=== PATIENT | female | born 2000 | race Caucasian/White ===

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

== ENCOUNTER 2018-02-20 18:34 | Emergency (ER) | payer OTHER ==
[2018-02-20 19:05] VITALS: BP 125/73; PULSE 84; RESP 18; TEMP 98.6
[2018-02-20] MEDS ORDERED: HYDROcodone/APAP 5-325MG 1 EACH TAB PO STA (19:36)
--- NOTE | 2018-02-20 20:02 | XR ---
EXAMINATION TYPE: XR ankle complete LT DATE OF EXAM: 02/20/2018 COMPARISON: NONE HISTORY: Ankle pain TECHNIQUE: 3 views FINDINGS: I see no fracture nor dislocation. Ankle mortise is anatomic. Joint spaces are normal. IMPRESSION: Negative left ankle exam.
--- NOTE | 2018-02-20 20:03 | XR ---
EXAMINATION TYPE: XR tibia fibula LT DATE OF EXAM: 02/20/2018 COMPARISON: NONE HISTORY: Ankle pain TECHNIQUE: 2 views FINDINGS: I see no fracture nor dislocation. Knee joint and ankle joint appear intact. Soft tissues a ppear normal. IMPRESSION: Normal left tibia and fibula.
--- NOTE | 2018-02-20 20:46 | ED ---
General Adult HPI - General Chief complaint: Extremity Injury, Lower Stated complaint: left leg injury Time Seen by Provider: 02/20/18 19:15 Source: patient Mode of arrival: ambulatory Limitations: no limitations - History of Present Illness Initial comments: This a 17-year-old female with past medical history of asthma who presents today for chief complaint of I rolled my ankle. Patient states that around 6: 30 PM she was riding a long board for the first time, when she fell off and twisted her left ankle inward, she states that she felt a pop and immediately noticed swelling and pain in the ankle joint. Patient was able to ambulate, and weight-bear after the injury however it is very painful. Patient describes the pain is localized to the left ankle that increases with weightbearing and range of motion. She had her friend pick her up and she is mainly brought to the emergency department. Patient denies any numbness, tingling, paresthesia, loss of sensation, color changes, previous ankle injury, muscle weakness, or pallor of the left lower extremity, patient denies any obvious dislocation. Patient did not ice or take medication prior to arrival at the emergency department. Patient denies injury to any other body part/extremity including the head, patient did not hit head, lose consciousness, or experiencing any chest pain, palpitations, dizziness or shortness of breath prior to falling. She states that this was a mechanical. Patient denies any recent fever, chills, shortness of breath, chest pain, back pain, abdominal pain, nausea or vomiting, numbness or tingling, dysuria or hematuria, constipation or diarrhea, headaches or visual changes, or any other complaints. Patient last menstrual period was a day ago, patient denies chance of . - Related Data Home Medications Medication Instructions Recorded Confirmed Albuterol Inhaler [Ventolin Hfa 1 puff INHALATION RT-Q6H PRN 09/29/15 08/16/16 Inhaler] Previous Rx's Medication Instructions Recorded Famotidine [Pepcid] 20 mg PO BID #14 tablet 11/14/16 diphenhydrAMINE [Benadryl] 50 mg PO QID PRN #20 capsule 11/14/16 Triamcinolone 0.1% Cream [Kenalog] 1 applicatio TOPICAL BID #30 gram 05/05/17 Sulfamethox-Tmp 800-160Mg [Bactrim 1 tab PO Q12HR #28 tab 09/23/17 DS 800-160 mg] Fluticasone Nasal [place] [Flonase 2 spr EA NOSTRIL DAILY #1 bottle 12/30/17 Nasal [place]] Loratadine [Claritin] 10 mg PO DAILY #30 tab 12/30/17 Meclizine [Antivert] 25 mg PO TID PRN #15 tab 12/30/17 Ibuprofen [Motrin] 600 mg PO Q6HR PRN 7 Days #28 tab 02/20/18 Allergies Allergy/AdvReac Type Severity Reaction Status Date / Time cashew nut Allergy Unknown Verified 02/20/18 19:05 egg Allergy Unknown Verified 02/20/18 19:05 Influenza Virus Vaccines Allergy Unknown Verified 02/20/18 19:05 mold Allergy Unknown Verified 02/20/18 19:05 pollen extracts Allergy Unknown Verified 02/20/18 19:05 walnut Allergy Unknown Verified 02/20/18 19:05 Review of Systems ROS Statement: Those systems with pertinent positive or pertinent negative responses have been documented in the HPI. ROS Other: All systems not noted in ROS Statement are negative. Constitutional: Denies: fever, chills ENT: Denies: ear pain Respiratory: Denies: cough, dyspnea Cardiovascular: Denies: chest pain, palpitations, dyspnea on exertion, orthopnea , edema Endocrine: Denies: fatigue Gastrointestinal: Denies: abdominal pain, nausea, vomiting, diarrhea, constipation, hematemesis Genitourinary: Denies: urgency, dysuria, frequency, hematuria Musculoskeletal: Reports: as per HPI, joint swelling, arthralgia Skin: Denies: rash, lesions Neurological: Denies: headache, weakness, numbness, paresthesias, confusion, abnormal gait Past Medical History Past Medical History: Asthma Additional Past Medical History / Comment(s): per mom numerous concussions, History of Any Multi-Drug Resistant Organisms: None Reported Past Surgical History: No Surgical Hx Reported Additional Past Surgical History / Comment(s): wisdom teeth removed, Past Psychological History: Anxiety, Depression, Panic Disorder Smoking Status: Never smoker Past Alcohol Use History: None Reported Past Drug Use History: None Reported General Exam - General Exam Comments Initial Comments: General: The patient is awake and alert, in no distress, and does not appear acutely ill. Eye: Pupils are equal, round and reactive to light, extra-ocular movements are intact. No nystagmus. There is normal conjunctiva bilaterally. No signs of icterus. Ears, nose, mouth and throat: There are moist mucous membranes and no oral lesions. Neck: The neck is supple, there is no tenderness or JVD. Cardiovascular: There is a regular rate and rhythm. No murmur, rub or gallop is appreciated. Respiratory: Lungs are clear to auscultation, respirations are non-labored, breath sounds are equal. No wheezes, stridor, rales, or rhonchi. Musculoskeletal: There is obvious soft tissue swelling to the lateral aspect of the left ankle joint. There is no evidence of ecchymosis. No foot drop. Pt is tender to palpation over the lateral malleolus and anterior ankle joint. Pt denies tenderness over the medial mallelous. Pt have no pain to the forefoot or navicular bone. No pain in akle with compression of tibia and fibula. Pt is able to range the left ankle joint however it is limited secondary to pain. Increased pain with inversion of the ankle joint. Strength testing was limited due to pt compliance, however felt as though strength was 5/5 with plantar flexion/dorsiflexion- no evidence of increased laxity or crepitus. Normal ROM, no tenderness of the left knee, left hip and right LE. Strength 5/5 of the left knee, hip and right LE. Sensation intact of the LE equally b/l. No parathesias to the second wed space of the left foot. Pulses equal bilaterally 2 +M DP and posterior tibial. Compartments are soft and compressible. Gallagher's sign present. +2/5 DTR of the patella and achillles reflexes equally b/l. Neurological: A&O x 3. CN II-XII intact, There are no obvious motor or sensory deficits. Coordination appears grossly intact. Speech is normal. Skin: Skin is warm and dry and no rashes or lesions are noted. Psychiatric: Cooperative, appropriate mood & affect, normal judgment. Limitations: no limitations Course Vital Signs 02/20/18 19:01 Temperature 98.6 F Pulse Rate 84 Respiratory 18 Rate Blood Pressure 125/73 O2 Sat by Pulse 99 Oximetry Medical Decision Making - Medical Decision Making Pt was given norco for pain management upon arrival-pt denied chance of denying sexually activity. XR of the left ankle, tibia and fibula negative. Given the history and significance of soft tissue swelling I am suspicious for possible ligamentous injury/bria sprain. Neurovascular exam unremarkable and compartments soft and compressible. Pt was put in a posterior mold splint and given RX for crutches. Pt was instructed to limit WB activity until further evaluation and recommendations from desktop support specialist. pt was given ibuprofen 800mg rx for pain mgmt as needed and instructed to rest, ice and elevate the leg. Pt was given work note until further orthopedic f/u. Case was discussed in detail with Dr. Martinez at this time we feel pt is stable for d/c with orthopedic f/u in 1-2 days. Disposition Clinical Impression: Moderate left ankle sprain, Left ankle pain Disposition: HOME SELF-CARE Condition: Good Instructions: Ankle Sprain (ED) Additional Instructions: Please use medication as discussed. Please follow-up with orthopedics in 1-2 days. Please rest, ice and elevate left leg as discussed. Please return to emergency room if the symptoms increase or worsen or for any other concerns. Prescriptions: Ibuprofen [Motrin] 600 mg PO Q6HR PRN 7 Days #28 tab PRN Reason: Pain Is patient prescribed a controlled substance at d/c from ED?: No Referrals: Laura Snow MD [Primary Care Provider] - 1-2 days Dung Lara DO [Doctor of Osteopathic Medicine] - 1-2 days Time of Disposition: 20:49
== END 2018-02-20 21:02 | disposition home or self-care (01) ==
LOC: EC 18:34
DX: S93.402A Sprain of unspecified ligament of left ankle, initial encounter (principal); J45.909 Unspecified asthma, uncomplicated; Z91.018 Allergy to other foods; Z91.012 Allergy to eggs; Z88.7 Allergy status to serum and vaccine; Z91.048 Other nonmedicinal substance allergy status; X50.1XXA Overexertion from prolonged static or awkward postures, initial encounter; Y93.I9 Activity, other involving external motion
CPT/HCPCS: 29515; 99283

== ENCOUNTER 2018-09-26 17:46 | Emergency (ER) | payer OTHER ==
[2018-09-26 18:27] VITALS: RESP 16; TEMP 98.1
[2018-09-26] MEDS ORDERED: DEXAMETHASONE SOD PHOSPHATE 10 MG/ML 1 ML VIAL IM STA (20:12)
[2018-09-26] MEDS ORDERED: ONDANSETRON ODT 4 MG TAB PO STA (20:12)
[2018-09-26] MEDS ORDERED: ONDANSETRON 4 MG ODT STARTER PACK 2 TAB BTL PO STA (20:12)
[2018-09-26] MEDS ORDERED: FAMOTIDINE 20 MG TAB PO STA (20:12)
[2018-09-26] MEDS ORDERED: hydrOXYzine HCL 25 MG TAB PO STA (20:14)
--- NOTE | 2018-09-26 20:23 | ED ---
Nausea/Vomiting/Diarrhea HPI - General Chief complaint: Nausea/Vomiting/Diarrhea Stated complaint: Poss Allergic reaction Time Seen by Provider: 09/26/18 19:37 Source: patient, RN notes reviewed, old records reviewed Mode of arrival: ambulatory Limitations: no limitations - History of Present Illness Initial comments: This is a 18-year-old female the ER for evaluation. Patient does say for evaluation regarding facial rash and reaction. Patient doesn't to drinking alcohol last night did have nausea and vomiting when she awoke this morning. Patient also diarrhea throughout the day and is has been feeling completely resolved. The rash has persisted as well as some lip swelling and mucous membrane swelling. The swelling is improved. No current nausea and vomiting. Patient denies any other complaints MD complaint: nausea, vomiting, other (Facial rash) -: days(s) (1) Description of Vomiting: food contents Description of Diarrhea: green Associated Abdominal Pain: Yes Location: epigastric Radiation: none Severity: mild Quality: aching Consistency: constant, now resolved Improves with: none Worsens with: none Context: alcohol abuse Associated Symptoms: denies other symptoms - Related Data Home Medications Medication Instructions Recorded Confirmed Albuterol Inhaler [Ventolin Hfa 1 puff INHALATION RT-Q6H PRN 09/29/15 09/26/18 Inhaler] Acyclovir 400 mg PO BID 09/26/18 09/26/18 Allergies Allergy/AdvReac Type Severity Reaction Status Date / Time cashew nut Allergy Unknown Verified 09/26/18 20:27 egg Allergy Unknown Verified 09/26/18 20:27 Influenza Virus Vaccines Allergy Unknown Verified 09/26/18 20:27 mold Allergy Unknown Verified 09/26/18 20:27 pollen extracts Allergy Unknown Verified 09/26/18 20:27 tree nut [Pecan] Allergy Unknown Verified 09/26/18 20:27 walnut Allergy Unknown Verified 09/26/18 20:27 Review of Systems ROS Statement: Those systems with pertinent positive or pertinent negative responses have been documented in the HPI. ROS Other: All systems not noted in ROS Statement are negative. Past Medical History Past Medical History: Asthma Additional Past Medical History / Comment(s): per mom numerous concussions, History of Any Multi-Drug Resistant Organisms: None Reported Past Surgical History: No Surgical Hx Reported Additional Past Surgical History / Comment(s): wisdom teeth removed, Past Psychological History: Anxiety, Depression, Panic Disorder Smoking Status: Never smoker Past Alcohol Use History: None Reported Past Drug Use History: None Reported General Exam - General Exam Comments Initial Comments: Patient does have mild facial rash Limitations: no limitations General appearance: alert, in no apparent distress Head exam: Present: atraumatic, normocephalic, normal inspection Eye exam: Present: normal appearance, PERRL, EOMI. Absent: scleral icterus, conjunctival injection, periorbital swelling ENT exam: Present: normal exam, mucous membranes moist Neck exam: Present: normal inspection. Absent: tenderness, meningismus, lymphadenopathy Respiratory exam: Present: normal lung sounds bilaterally. Absent: respiratory distress, wheezes, rales, rhonchi, stridor Cardiovascular Exam: Present: regular rate, normal rhythm, normal heart sounds. Absent: systolic murmur, diastolic murmur, rubs, gallop, clicks GI/Abdominal exam: Present: soft, normal bowel sounds. Absent: distended, tenderness, guarding, rebound, rigid Extremities exam: Present: normal inspection, full ROM, normal capillary refill. Absent: tenderness, pedal edema, joint swelling, calf tenderness Back exam: Present: normal inspection Neurological exam: Present: alert, oriented X3, CN II-XII intact Psychiatric exam: Present: normal affect, normal mood Skin exam: Present: warm, dry, intact, normal color. Absent: rash Course Vital Signs 09/26/18 18:26 Temperature 98.1 F Pulse Rate 99 Respiratory 16 Rate Blood Pressure 149/80 O2 Sat by Pulse 99 Oximetry - Reevaluation(s) Reevaluation #1: 09/26/18 20:30 No active vomiting, Medical Decision Making - Medical Decision Making 18 female the ER with multiple nonspecific complaints, facial rash tongue and mucous membrane reaction, nausea vomiting and diarrhea. patient be discharged on zofran symptoms improved here in emergency room Disposition Clinical Impression: Nausea & vomiting, Allergic reaction Disposition: HOME SELF-CARE Condition: Good Instructions (If sedation given, give patient instructions): Acute Nausea and Vomiting (ED), Dermatitis (ED) Is patient prescribed a controlled substance at d/c from ED?: No Referrals: Laura Snow MD [Primary Care Provider] - 1-2 days
[2018-09-26 21:16] VITALS: BP 110/78; PULSE 93
== END 2018-09-26 21:30 | disposition home or self-care (01) ==
LOC: EC 17:46
DX: T78.40XA Allergy, unspecified, initial encounter (principal); R11.2 Nausea with vomiting, unspecified; R10.13 Epigastric pain; J45.909 Unspecified asthma, uncomplicated; Z88.7 Allergy status to serum and vaccine; Z91.012 Allergy to eggs; Z91.018 Allergy to other foods; Z91.09 Other allergy status, other than to drugs and biological substances; Z79.899 Other long term (current) drug therapy
CPT/HCPCS: 99285; S0119

== ENCOUNTER 2019-06-06 18:22 | Emergency (ER) | payer OTHER ==
[2019-06-06 18:26] VITALS: BP 109/64; PULSE 82; RESP 18; TEMP 97.4
[2019-06-06] MEDS ORDERED: ONDANSETRON 4 MG ODT STARTER PACK 2 TAB BTL PO STA (18:29)
--- NOTE | 2019-06-06 19:39 | ED ---
Nausea/Vomiting/Diarrhea HPI - General Chief complaint: Nausea/Vomiting/Diarrhea Stated complaint: Vomiting, Abd Pain Time Seen by Provider: 06/06/19 18:30 Source: patient Mode of arrival: ambulatory Limitations: no limitations - History of Present Illness Initial comments: 18-year-old male with no significant past medical history presented to the emergency department for evaluation of vomiting times one day. Patient states she has had vomiting diarrhea that began shortly after eating [employer]. Patient states she feels that she ate something bad she states she did have nausea abdominal cramping prior to vomiting. She denies any severe abdominal pain. Denies . Patient denies a chest pain shortness of breath melena hematochezia or fevers. Patient denies any positive sick contacts. Upon arrival patient appears well in the sense acute distress remaining abuse is negative. - Related Data Home Medications Medication Instructions Recorded Confirmed Albuterol Inhaler [Ventolin Hfa 2 puff INHALATION RT-Q6H PRN 09/29/15 06/06/19 Inhaler] Acyclovir 400 mg PO BID 09/26/18 06/06/19 Phentermine HCl [Adipex-P] 37.5 mg PO DAILY 06/06/19 06/06/19 Allergies Allergy/AdvReac Type Severity Reaction Status Date / Time cashew nut Allergy Unknown Verified 06/06/19 19:08 egg Allergy Unknown Verified 06/06/19 19:08 Influenza Virus Vaccines Allergy Unknown Verified 06/06/19 19:08 mold Allergy Unknown Verified 06/06/19 19:08 pollen extracts Allergy Unknown Verified 06/06/19 19:08 tree nut [Pecan] Allergy Unknown Verified 06/06/19 19:08 walnut Allergy Unknown Verified 06/06/19 19:08 Review of Systems ROS Statement: Those systems with pertinent positive or pertinent negative responses have been documented in the HPI. ROS Other: All systems not noted in ROS Statement are negative. Past Medical History Past Medical History: Asthma Additional Past Medical History / Comment(s): per mom numerous concussions, History of Any Multi-Drug Resistant Organisms: None Reported Past Surgical History: No Surgical Hx Reported Additional Past Surgical History / Comment(s): wisdom teeth removed, Past Psychological History: Anxiety, Depression, Panic Disorder Smoking Status: Never smoker Past Alcohol Use History: None Reported Past Drug Use History: None Reported General Exam - General Exam Comments Initial Comments: General: The patient is awake and alert, in no distress, and does not appear acutely ill. Eye: Pupils are equal, round and reactive to light, extra-ocular movements are intact. No nystagmus. There is normal conjunctiva bilaterally. No signs of icterus. Ears, nose, mouth and throat: There are moist mucous membranes and no oral lesions. Neck: The neck is supple, there is no tenderness or JVD. Cardiovascular: There is a regular rate and rhythm. No murmur, rub or gallop is appreciated. Respiratory: Lungs are clear to auscultation, respirations are non-labored, breath sounds are equal. No wheezes, stridor, rales, or rhonchi. Gastrointestinal: Soft, non-distended, non-tender abdomen without masses or organomegaly noted. There is no rebound or guarding present. Musculoskeletal: Normal ROM, no tenderness. Strength 5/5. Sensation intact. Pulses equal bilaterally 2+. Neurological: A&O x 3. CN II-XII intact grossly, There are no obvious motor or sensory deficits. Coordination appears grossly intact. Speech is normal. Skin: Skin is warm and dry and no rashes or lesions are noted. Psychiatric: Cooperative, appropriate mood & affect, normal judgment. Limitations: no limitations Course Vital Signs 06/06/19 18:24 Temperature 97.4 F L Pulse Rate 82 Respiratory 18 Rate Blood Pressure 109/64 O2 Sat by Pulse 99 Oximetry Medical Decision Making - Medical Decision Making 18-year-old female presenting for vomiting and diarrhea 8 hours. Abdominal exam benign. Patient appears hydrated examination. vomiting given zofran. symptoms controlled. hcg negative at this time i do feel patient is stable for discharge with return parameters as discussed. patient is agreeable discharged with stable vital signs. - Lab Data Lab Results 06/06/19 Range/Units 19:40 Urine HCG, Qual Not Detected (Not Detectd) Disposition Clinical Impression: Vomiting and diarrhea Disposition: HOME SELF-CARE Condition: Good Instructions (If sedation given, give patient instructions): Acute Nausea and Vomiting (ED), Acute Diarrhea (ED) Additional Instructions: Please use medication as discussed. Please follow-up with family doctor in the next 2 days. Please return to emergency room if the symptoms increase or worsen or for any other concerns. Is patient prescribed a controlled substance at d/c from ED?: No Referrals: None,Stated [Primary Care Provider] - 1-2 days Time of Disposition: 19:43
== END 2019-06-06 20:11 | disposition home or self-care (01) ==
LOC: EC 18:22
DX: R11.2 Nausea with vomiting, unspecified (principal); R19.7 Diarrhea, unspecified; J45.909 Unspecified asthma, uncomplicated; Z79.51 Long term (current) use of inhaled steroids; Z91.018 Allergy to other foods; Z88.7 Allergy status to serum and vaccine; Z91.012 Allergy to eggs; Z91.048 Other nonmedicinal substance allergy status
CPT/HCPCS: 81025; 99284; S0119

== ENCOUNTER 2020-05-02 14:54 | Emergency (ER) | payer OTHER ==
[2020-05-02 15:28] VITALS: BP 106/63; PULSE 82; RESP 16; TEMP 98
--- NOTE | 2020-05-02 15:53 | ED ---
Lower Extremity Injury HPI - General Chief Complaint: Extremity Injury, Lower Stated Complaint: knee injury Time Seen by Provider: 05/02/20 15:30 Source: patient, RN notes reviewed, old records reviewed Mode of arrival: ambulatory Limitations: no limitations - History of Present Illness Initial Comments: Patient is a 19-year-old female who presents the emergency department today for eval for concern for left knee pain. She reports that the pain has been chronic for months. Patient states that it seems to be worse with flexing her knee and struck her movements. She stated she had x-rays beginning of the year which showed no fractures. She states she followed up with PCP and had knee immobilizer but never had an MRI. Patient complains that she is has not followed up with orthopedic. - Related Data Home Medications Medication Instructions Recorded Confirmed Albuterol Inhaler (Mhu) [Ventolin 2 puff INHALATION RT-Q6H PRN 09/29/15 06/06/19 Hfa Inhaler (Mhu)] Acyclovir 400 mg PO BID 09/26/18 06/06/19 Phentermine HCl [Adipex-P] 37.5 mg PO DAILY 06/06/19 06/06/19 Previous Rx's Medication Instructions Recorded Naproxen 500 mg PO BID #30 tablet 05/02/20 Allergies Allergy/AdvReac Type Severity Reaction Status Date / Time cashew nut Allergy Unknown Verified 05/02/20 15:28 egg Allergy Unknown Verified 05/02/20 15:28 Influenza Virus Vaccines Allergy Unknown Verified 05/02/20 15:28 mold Allergy Unknown Verified 05/02/20 15:28 pollen extracts Allergy Unknown Verified 05/02/20 15:28 tree nut [Pecan] Allergy Unknown Verified 05/02/20 15:28 walnut Allergy Unknown Verified 05/02/20 15:28 Review of Systems ROS Statement: Those systems with pertinent positive or pertinent negative responses have been documented in the HPI. ROS Other: All systems not noted in ROS Statement are negative. Past Medical History Past Medical History: Asthma Additional Past Medical History / Comment(s): per mom numerous concussions, History of Any Multi-Drug Resistant Organisms: None Reported Past Surgical History: No Surgical Hx Reported Additional Past Surgical History / Comment(s): wisdom teeth removed, Past Psychological History: Anxiety, Depression, Panic Disorder Smoking Status: Never smoker Past Alcohol Use History: Occasional Past Drug Use History: Marijuana General Exam - General Exam Comments Initial Comments: 19-year-old female. Alert and oriented. No distress. Limitations: no limitations General appearance: alert, in no apparent distress Head exam: Present: atraumatic, normocephalic, normal inspection Eye exam: Present: normal appearance, PERRL, EOMI. Absent: scleral icterus, conjunctival injection, periorbital swelling ENT exam: Present: normal exam Neck exam: Present: normal inspection. Absent: tenderness, meningismus, lymphadenopathy Respiratory exam: Present: normal lung sounds bilaterally. Absent: respiratory distress, wheezes, rales, rhonchi, stridor Cardiovascular Exam: Present: regular rate, normal rhythm, normal heart sounds. Absent: systolic murmur, diastolic murmur, rubs, gallop, clicks GI/Abdominal exam: Present: soft, normal bowel sounds. Absent: distended, tenderness, guarding, rebound, rigid Extremities exam: Present: normal inspection, full ROM, normal capillary refill. Absent: tenderness, pedal edema, joint swelling, calf tenderness Left Upper Leg exam: Present: normal inspection, full ROM Knee exam: Present: normal inspection, tenderness Lower Leg exam: Present: normal inspection, full ROM Ankle exam: Present: normal inspection, full ROM Foot/Toe exam: Present: normal inspection, full ROM Neurovascular tendon exam: Present: no vascular compromise Gait: observed and normal Back exam: Present: normal inspection Neurological exam: Present: alert, oriented X3, CN II-XII intact Psychiatric exam: Present: normal affect, normal mood Skin exam: Present: warm, dry, intact, normal color. Absent: rash Course Vital Signs 05/02/20 15:24 Temperature 98.0 F Pulse Rate 82 Respiratory 16 Rate Blood Pressure 106/63 O2 Sat by Pulse 99 Oximetry Medical Decision Making - Medical Decision Making 19-year-old female presents with chronic left knee pain worse with some flexion and certain movements. Patient had x-rays which showed no fracture beginning of the year. I offered patient's x-rays today she states she prefers not to. Patient is neurovascularly intact. Patient's knee has full range of motion. No significant crepitus. She has had pain over valgus stress. Patient informed likely ligamentous or cartilaginous injury and meniscus. Patient advised follow-up with orthopedic podiatrist for possible MRI. She declined x-rays or IM pain medication emergency department. Discussed ice and elevation. Discussed that the pain continues she did follow-up for recheck but to follow-up with orthopedic symptoms pain has been chronic for greater than a month. Disposition Clinical Impression: Chronic knee pain Disposition: HOME SELF-CARE Condition: Good Instructions (If sedation given, give patient instructions): Knee Pain (ED), Swollen Joint (ED) Additional Instructions: Patient has a follow-up with orthopedic podiatrist in regards to chronic knee pain. Patient may need an MRI. Patient should wear Won wrap and rest ice and elevate the knee. Return to the ED if any alarming signs or symptoms occur. Prescriptions: Naproxen 500 mg PO BID #30 tablet Is patient prescribed a controlled substance at d/c from ED?: No Referrals: Martín Chen [Primary Care Provider] - 1-2 days Hernan Ho DO [Medical Doctor] - 1-2 days Time of Disposition: 15:52
== END 2020-05-02 15:55 | disposition home or self-care (01) ==
LOC: EC 14:54
DX: M25.562 Pain in left knee (principal); G89.29 Other chronic pain; J45.909 Unspecified asthma, uncomplicated; Z88.7 Allergy status to serum and vaccine; Z91.012 Allergy to eggs; Z91.018 Allergy to other foods; Z91.048 Other nonmedicinal substance allergy status
CPT/HCPCS: 99283

== ENCOUNTER → 2020-07-20 | Outpatient (CLI) | payer OTHER ==
[2020-07-20 12:50] LABS: HCT 40.8 % (34.0-46.0); HGB 13.7 gm/dL (11.4-16.0); MCH 29.8 pg (25.0-35.0); MCHC 33.6 g/dL (31.0-37.0); MCV 88.8 fL (80.0-100.0); Mean Platelet Volume 6.6; Platelet Count 256 k/uL (150-450); RBC 4.59 m/uL (3.80-5.40); RDW 13.2 % (11.5-15.5); WBC 6.1 k/uL (3.8-10.6)
[2020-07-20 19:09] LABS: Non-African American GFR(CKD) 130.3 (60.0-200.0)
[2020-07-20 20:41] LABS: Hepatitis B Surface Antigen Non-Reactive (Non-Reactive)
[2020-07-21 05:07] LABS: Toxoplasma Antibody (IgG) <3.0 IU/mL (<7.2); Toxoplasma Antibody (IgM) <3.0 AU/mL (<8.0)
[2020-07-21 22:18] LABS: HIV 2 AB Non-Reactive (Non-Reactive); HIV AB P24 Non-Reactive (Non-Reactive); HIV P24 AG Non-Reactive (Non-Reactive)
== END | disposition home or self-care (01) ==
LOC: LABWHC1 11:16
PROVIDERS: ATTEND Obstetrics & Gynecology
DX: Z34.01 Encounter for supervision of normal first pregnancy, first trimester (principal); R53.83 Other fatigue
CPT/HCPCS: 36415; 82565; 82947; 85027; 86762; 86777; 86778; 86780; 86850; 86900; 86901; 87340; 87390

== ENCOUNTER → 2020-07-21 | Outpatient (CLI) | payer OTHER ==
--- NOTE | 2020-07-21 15:47 | US ---
EXAMINATION TYPE: Transabdominal DATE OF EXAM: 07/21/2020 3:21 PM COMPARISON: NONE CLINICAL HISTORY: Confirm dates Z36. Confirm dates, 1 EXAM PERFORMED: Transabdominal (TA) EXAM MEASUREMENTS: GESTATIONAL AGE / DATING Physician Established: Not established yet Dates by LMP: Unknown Dates by First Scan: This is 1st scan Dates by Current Scan for: (7 weeks/1 days) EDC: 03/08/2021 MATERNAL ANATOMY Uterus: 10.7 x 4.4 x 6.2cm Right Ovary: 3.5 x 2.7 x 2.4cm Left Ovary: 2.9 x 1.5 x 2.1cm Post CDS / Adnexa: wnl Presence of free fluid: no Presence of corpus luteal cyst: right ovary: 2.0 x 1.6 x 1.7cm Presence of subchorionic bleed: no GESTATION / SURVEY CRL: 1.0cm (7 weeks/1 days) Yolk Sac (normal less than 6mm): 5.4mm Heart Rate: 159 bpm Rhythm: Normal IUP: Viable IUP IMPRESSION: Single viable intrauterine corresponding to an ultrasound age 7 weeks 1 day with estimated date of delivery 03/08/2021
== END | disposition home or self-care (01) ==
LOC: RADUSWWP 15:00
PROVIDERS: ATTEND Obstetrics & Gynecology
DX: Z36.87 Encounter for antenatal screening for uncertain dates (principal); Z3A.01 Less than 8 weeks gestation of pregnancy
CPT/HCPCS: 76801

== ENCOUNTER 2021-02-16 06:30 | Inpatient (IN) | payer OTHER ==
[2021-02-16] MEDS ORDERED: METHYLERGONOVINE 0.2 MG/ML 1 ML AMP IM PRN (07:02)
[2021-02-16] MEDS ORDERED: CARBOPROST TROMETHAMINE 250 MCG/ML 1 ML AMP IM PRN (07:02)
[2021-02-16] MEDS ORDERED: TERBUTALINE 1 MG/ML VIAL SQ PRN (07:02)
[2021-02-16] MEDS ORDERED: OXYTOCIN 10 UNIT/ML 1 ML VIAL IM PRN (07:02)
--- NOTE | 2021-02-16 07:02 | P.HPOB ---
History of Present Illness H&P Date: 02/16/21 Chief Complaint: Leaking of fluid This patient is a pleasant 20-year-old 1 para 0 female estimated date of confinement 03/04/2021 estimated gestational age 37-5/7 weeks who presents to labor and delivery with complaints of gush of fluid at about 4:30 this morning. care is per Dr. Diaz and appears to be complicated by marijuana use. otherwise appears to be uncomplicated. Patient has a history of genital herpes and has been on prophylactic antiviral. She's had no recent outbreaks. Review of Systems Genitourinary: Reports Menstruation: Reports amenorrhea Past Medical History Past Medical History: Asthma Additional Past Medical History / Comment(s): per mom numerous concussions, History of Any Multi-Drug Resistant Organisms: None Reported Past Surgical History: No Surgical Hx Reported Additional Past Surgical History / Comment(s): wisdom teeth removed, Smoking Status: Never smoker Medications and Allergies Home Medications Medication Instructions Recorded Confirmed Type RX: Acyclovir 400 mg PO BID 09/26/18 02/16/21 History Pnv,Calcium 72/Iron/Folic Acid 1 tab PO DAILY 02/16/21 02/16/21 History [ Plus Tablet] Allergies Allergy/AdvReac Type Severity Reaction Status Date / Time cashew nut Allergy Unknown Verified 02/16/21 06:47 egg Allergy Unknown Verified 02/16/21 06:47 Influenza Virus Vaccines Allergy Unknown Verified 02/16/21 06:47 mold Allergy Unknown Verified 02/16/21 06:47 pecan nut Allergy Unknown Verified 02/16/21 06:47 pollen extracts Allergy Unknown Verified 02/16/21 06:47 tree nut [Pecan] Allergy Unknown Verified 02/16/21 06:47 walnut Allergy Unknown Verified 02/16/21 06:47 Exam Intake and Output 02/15/21 02/15/21 02/16/21 14:59 22:59 06:59 Other: Weight 105.687 kg - OBG Physical Exam Abdomen: bowel sounds normal, no diffuse tenderness, no bruit present, no guarding noted, no hepatomegaly, no splenomegaly, no mass Vulva: both: normal Vagina: normal moisture (Post rupture of membranes), no discharge Cervix: Cervix is 2-3 cm per the RN. Uterus: enlarged Results blood work shows she is O positive, rubella immune, RPR is nonreactive, hepatitis B is negative, HIV is nonreactive, group B strep was negative, glucose testing was normal. Assessment and Plan Assessment: This patient is a pleasant 20-year-old 1 para 0 female 37-5/7 weeks gestation admitted to labor and delivery with spontaneous rupture membranes in early labor. Patient also uses marijuana on most recently was yesterday. Plan is admission and Pitocin augmentation as necessary. Currently we anticipate a vaginal delivery. In Dr. Diaz's absence Dr. Broderick will be taking over on this patient's labor management. (1) 37 weeks gestation of Current Visit: Yes Status: Acute Code(s): Z3A.37 - 37 WEEKS GESTATION OF SNOMED Code(s): 80191737 (2) Spontaneous rupture of amniotic membranes Current Visit: Yes Status: Acute Code(s): SWI8227 - SNOMED Code(s): 279261034 (3) Substance abuse Current Visit: Yes Status: Acute Code(s): F19.10 - OTHER PSYCHOACTIVE SUBSTANCE ABUSE, UNCOMPLICATED SNOMED Code(s): 00772548
[2021-02-16] MEDS ORDERED: OXYTOCIN 30 UNITS/500 ML NS 30 UNIT in SALINE 1 500ML.BAG IV SCH (07:15)
[2021-02-16] MEDS: LACTATED RINGERS 1,000 ML IV SCH ×3 (07:36→22:11)
[2021-02-16 07:53] LABS: Basophils % (A) 0 %; Eosinophils # (A) 0.1 k/uL (0-0.7); Eosinophils % (A) 1 %; HCT 41.5 % (34.0-46.0); HGB 13.7 gm/dL (11.4-16.0); Lymphocytes # (A) 2.5 k/uL (1.0-4.8); Lymphocytes % (A) 23 %; Monocytes # (A) 0.6 k/uL (0-1.0); Monocytes % (A) 6 %; Neutrophils # (A) 7.4 k/uL (1.3-7.7); Neutrophils % (A) 68 %; Platelet Count 248 k/uL (150-450); RBC 4.72 m/uL (3.80-5.40); RDW 15.5 % (11.5-15.5); WBC 10.8 k/uL (3.8-10.6)
[2021-02-16] MEDS ORDERED: CITRIC ACID-SODIUM CITRATE 15 ML CUP PO ONE (07:54)
[2021-02-16 08:52] LABS: Amphetamine Screen,Urine Not Detected (NotDetected); Barbiturate Screen,Urine Not Detected (NotDetected); Benzodiazepines Screen,Urine Not Detected (NotDetected); Cocaine Screen,Urine Not Detected (NotDetected); Methadone Screen, Urine Not Detected (NotDetected); Opiate Screen,Urine Not Detected (NotDetected); Oxycodone Screen, Urine Not Detected (NotDetected); Phencyclidine Screen,Urine Not Detected (NotDetected); Tricyclic Antidepressant,Urine Not Detected (NotDetected); Urn Cannabinoid Scrn Detected (NotDetected)
[2021-02-16] MEDS ORDERED: ROPIVACAINE 5MG/ML 20ML VIAL ONE (12:21)
[2021-02-16] MEDS ORDERED: SODIUM CHLORIDE 0.9% 100 ML BAG ONE (12:21)
[2021-02-16] MEDS ORDERED: fentaNYL (PF) 50 MCG/ML 5 ML AMP ONE (12:21)
[2021-02-16] MEDS ORDERED: AMPICILLIN 2,000 MG in SODIUM CHLORIDE 0.9% 50 ML IVPB ONE (22:00)
[2021-02-17] MEDS ORDERED: diphenhydrAMINE 25 MG CAP PO PRN (00:12)
[2021-02-17] MEDS ORDERED: ZOLPIDEM 5 MG TAB PO PRN (00:12)
[2021-02-17] MEDS ORDERED: HYDROCORTISONE 2.5% RECTAL CREAM 30 GM TUBE RECTAL PRN (00:12)
[2021-02-17] MEDS ORDERED: LANOLIN CREAM 5 GM TUBE TOPICAL PRN (00:12)
[2021-02-17] MEDS ORDERED: BENZOCAINE/MENTHOL SPRAY 1 GM/SPRAY AEROSOL TOPICAL PRN (00:12)
[2021-02-17] MEDS ORDERED: diphenhydrAMINE 50 MG CAP PO PRN (00:12)
[2021-02-17] MEDS ORDERED: diphenhydrAMINE 50 MG/ML 1 ML VIAL IVP PRN ×2 (00:12)
[2021-02-17] MEDS ORDERED: SIMETHICONE 80 MG CHEWABLE PO PRN (00:12)
[2021-02-17] MEDS ORDERED: OXYTOCIN 30 UNITS/500 ML NS 30 UNIT in SALINE 1 500ML.BAG IV SCH (00:15)
--- NOTE | 2021-02-17 00:15 | P.PROBDLV ---
Vaginal Delivery Note - . Vaginal Delivery Note: The patient progressed to complete dilation after oxytocin augmentation of labor and epidural anesthesia. She was given 1 dose of antibiotic at approximately 18 hours of spontaneous rupture membranes as a precaution. She began pushing. Infant's head came to a crown. With one further push, the 's head delivered across the perineum followed by the anterior shoulder and the remainder the . was then placed on mother's abdomen and nose and mouth were bulb suctioned and cord was clamped and cut. was taken to warmer for evaluation. A viable male is noted with scores of 8 at 1 minute and 9 at 5 minutes and infant weight of 6 lbs. 2 oz. Cord blood was obtained secondary to Rh- status. Placenta delivered shortly thereafter, intact, with a three-vessel cord. Uterus contracted fairly well after oxytocin was given and uterine massage was carried out. A gloved hand was placed within the uterine cavity and a small amount of membranous tissue was removed. Uterus did clamp down fairly well after this. Inspection of the perineum revealed a second-degree perineal laceration. This area was anesthetized with 1% lidocaine and then sutured with 30 and 2-0 Vicryl suture in the usual multilayer fashion. Estimated blood loss is approximately 200 mL's. Both mother and are in stable condition. Time of delivery was 2343.
[2021-02-17] MEDS: IBUPROFEN 600 MG TAB PO PRN ×3 (00:54→15:52)
[2021-02-17] MEDS ORDERED: AMPICILLIN 1,000 MG in SODIUM CHLORIDE 0.9% 50 ML IVPB SCH (02:00)
[2021-02-17] MEDS: ACYCLOVIR 200 MG CAP PO SCH ×2 (07:54→20:40)
[2021-02-17] MEDS: PRENATAL VIT-IRON-FOLIC ACID 1 EACH CAP PO SCH (07:54)
[2021-02-17] MEDS: SENNOSIDES-DOCUSATE SODIUM 1 EACH TAB PO SCH ×2 (07:54→20:40)
--- NOTE | 2021-02-17 08:26 | P.PNOBGVD ---
Subjective - Subjective Principal diagnosis: Status post vaginal delivery day #1 Interval history: Patient is doing okay. Lochia has been minimal. Her pain is fairly well controlled. She is working on breast-feeding. Patient reports: Reports appetite normal, Reports voiding normally, Reports pain well controlled, Reports ambulating normally [place]: doing well, nursing well Objective - Latest Vital Signs Latest vital signs: Vital Signs Temp Pulse Resp BP 02/17/21 02:13 99.2 F 88 16 106/51 02/17/21 01:43 99.2 F 92 16 135/64 02/17/21 01:12 98.8 F 110 H 16 126/64 02/17/21 00:56 100.1 F H 93 16 134/71 02/17/21 00:43 99.9 F H 100 16 136/76 02/17/21 00:28 99.2 F 103 H 16 133/74 02/17/21 00:13 99.5 F 116 H 18 136/68 Intake and Output 02/16/21 02/17/21 02/17/21 22:59 06:59 14:59 Output Total 350 200 Balance -350 -200 Output: Urine 350 Straight 350 Estimated Blood Loss 200 - Exam Extremities: Present: normal. Absent: tenderness Abdomen: Present: normal appearance, soft. Absent: distention, tenderness Uterus: Present: normal, firm. Absent: tenderness - Labs Labs: Abnormal Lab Results - Last 24 Hours (Table) 02/16/21 Range/Units 07:30 U Marijuana (THC) Screen Detected H (NotDetected) Assessment and Plan Assessment: Status post vaginal delivery day #1 Plan: Continue with care today. Anticipate discharge home tomorrow.
[2021-02-17] MEDS: ACETAMINOPHEN TAB 325 MG TAB PO PRN ×2 (10:51→20:39)
[2021-02-18] MEDS: IBUPROFEN 600 MG TAB PO PRN ×4 (02:36→20:08)
[2021-02-18] MEDS: ACETAMINOPHEN TAB 325 MG TAB PO PRN (06:33)
[2021-02-18] MEDS: SENNOSIDES-DOCUSATE SODIUM 1 EACH TAB PO SCH ×2 (07:59→20:08)
[2021-02-18 09:18] LABS: Anisocytosis Slight; Basophils % (A) 0 %; Eosinophils # (A) 0.1 k/uL (0-0.7); Eosinophils % (A) 1 %; HCT 31.8 % (34.0-46.0); Lymphocytes % (A) 24 %; MCH 29.7 pg (25.0-35.0); MCHC 32.3 g/dL (31.0-37.0); Mean Platelet Volume 7.6; Monocytes # (A) 0.3 k/uL (0-1.0); Monocytes % (A) 4 %; Neutrophils # (A) 5.6 k/uL (1.3-7.7); Neutrophils % (A) 68 %; Platelet Count 219 k/uL (150-450); RBC 3.46 m/uL (3.80-5.40); RDW 16.8 % (11.5-15.5); WBC 8.2 k/uL (3.8-10.6)
[2021-02-18 09:33] LABS: HGB 10.3 gm/dL (11.4-16.0)
--- NOTE | 2021-02-18 11:07 | P.DS ---
Providers Date of admission: 02/16/21 06:54 Expected date of discharge: 02/18/21 Attending physician: Rory Diaz Primary care physician: Stated None Hospital Course: Overall patient is doing well. She does have some jaw tenderness likely secondary to clenching her mouth and jaw also tightly during the pushing process. Otherwise she has no other complaints. Her pain is otherwise well control. She is trying to breast-feed. She is ambulating, voiding and tolerating her diet. Her baby is staying and we'll do everything we can to keep her at least in the hospital until tomorrow but she will have to be discharged home today. Vital signs are stable and afebrile. Heart regular, lungs clear, extremities without pain. Abdomen soft and uterus is firm. Lochia is reported be light. Assessment post day 2. Plan discharged home follow up with me in 6 weeks. Patient Condition at Discharge: Good Plan - Discharge Summary New Discharge Prescriptions: New Ibuprofen [Motrin] 600 mg PO Q6HR PRN #30 tab PRN Reason: Pain No Action Acyclovir 400 mg PO BID Pnv,Calcium 72/Iron/Folic Acid [ Plus Tablet] 1 tab PO DAILY Discharge Medication List Acyclovir 400 mg PO BID 09/26/18 [History] Pnv,Calcium 72/Iron/Folic Acid [ Plus Tablet] 1 tab PO DAILY 02/16/21 [History] Ibuprofen [Motrin] 600 mg PO Q6HR PRN #30 tab 02/18/21 [Rx] Follow up Appointment(s)/Referral(s): Rory Diaz DO [Doctor of Osteopathic Medicine] - 03/30/21 10:00 am Activity/Diet/Wound Care/Special Instructions: Heavy lifting, limit stairs and driving, and pelvic rest. If any high temperatures, heavy bleeding, or severe pain call my office Discharge Disposition: HOME SELF-CARE
[2021-02-18] MEDS: ACYCLOVIR 200 MG CAP PO SCH ×2 (11:40→22:59)
[2021-02-18] MEDS: PRENATAL VIT-IRON-FOLIC ACID 1 EACH CAP PO SCH (11:40)
[2021-02-18 15:51] VITALS: RESP 16
[2021-02-18 23:09] VITALS: BP 110/70; PULSE 80; TEMP 98.3
== END 2021-02-18 23:00 | disposition home or self-care (01) | DRG 806 ==
LOC: FBPOP 06:30 → 4FBP 06:54
PROVIDERS: ADMIT Obstetrics & Gynecology; ATTEND Obstetrics & Gynecology
PROC: 10E0XZZ Delivery of Products of Conception, External Approach (ICD-10-PCS; principal; 2021-02-16)
PROC: 0KQM0ZZ Repair Perineum Muscle, Open Approach (ICD-10-PCS; 2021-02-16)
PROC: 3E033VJ Introduction of Other Hormone into Peripheral Vein, Percutaneous Approach (ICD-10-PCS; 2021-02-16)
DX: O70.1 Second degree perineal laceration during delivery (principal); O98.32 Other infections with a predominantly sexual mode of transmission complicating childbirth; Z37.0 Single live birth; O99.324 Drug use complicating childbirth; J45.909 Unspecified asthma, uncomplicated; O99.513 Diseases of the respiratory system complicating pregnancy, third trimester; A60.09 Herpesviral infection of other urogenital tract; F12.10 Cannabis abuse, uncomplicated; Z3A.37 37 weeks gestation of pregnancy
CPT/HCPCS: 59025; 80306; 84112; 85025; 86850; 86900; 86901; 99213

== ENCOUNTER 2021-02-26 05:25 | Emergency (ER) | payer OTHER ==
[2021-02-26] MEDS ORDERED: KETOROLAC 15 MG/ML 1 ML VIAL IVP STA (05:33)
[2021-02-26] MEDS ORDERED: MORPHINE SULFATE 4 MG/ML SYRINGE IV STA (05:33)
[2021-02-26] MEDS ORDERED: SODIUM CHLORIDE 0.9% 1,000 ML IV STA (05:33)
--- NOTE | 2021-02-26 05:49 | ED ---
Abdominal Pain HPI - General Chief Complaint: Abdominal Pain Stated Complaint: Abd Pain Time Seen by Provider: 02/26/21 05:33 Source: patient, family, RN notes reviewed, old records reviewed Mode of arrival: ambulatory Limitations: no limitations - History of Present Illness Initial Comments: This is a 20 patient with no significant medical and no significant surgical [id number] female to the ER today. She presents today for evaluation of right lower quadrant abdominal pain, patient is afebrile but she is postop of a vaginal delivery. Patient states she is had some mild bleeding that is all resolved. Currently she presents today just for the abdominal pain. Mild nausea no vomiting no other complaints. MD Complaint: abdominal pain -: days(s) Location: diffuse, RLQ Radiation: RLQ Migration to: RLQ Severity: moderate Severity scale (1-10): 5 Quality: cramping, aching Consistency: intermittent Improves With: nothing Worsens With: nothing Associated Symptoms: other (none) Treatments Prior to Arrival: other (none) - Related Data Home Medications Medication Instructions Recorded Confirmed Acyclovir 400 mg PO BID 09/26/18 02/16/21 Pnv,Calcium 72/Iron/Folic Acid 1 tab PO DAILY 02/16/21 02/16/21 [ Plus Tablet] Previous Rx's Medication Instructions Recorded Ibuprofen [Motrin] 600 mg PO Q6HR PRN #30 tab 02/18/21 Allergies Allergy/AdvReac Type Severity Reaction Status Date / Time cashew nut Allergy Unknown Verified 02/26/21 05:30 egg Allergy Unknown Verified 02/26/21 05:30 Influenza Virus Vaccines Allergy Unknown Verified 02/26/21 05:30 mold Allergy Unknown Verified 02/26/21 05:30 pecan nut Allergy Unknown Verified 02/26/21 05:30 pollen extracts Allergy Unknown Verified 02/26/21 05:30 tree nut [Pecan] Allergy Unknown Verified 02/26/21 05:30 walnut Allergy Unknown Verified 02/26/21 05:30 Review of Systems ROS Statement: Those systems with pertinent positive or pertinent negative responses have been documented in the HPI. ROS Other: All systems not noted in ROS Statement are negative. Past Medical History Past Medical History: Asthma Additional Past Medical History / Comment(s): per mom numerous concussions, HSV type II History of Any Multi-Drug Resistant Organisms: None Reported Past Surgical History: No Surgical Hx Reported Additional Past Surgical History / Comment(s): wisdom teeth removed, Past Anesthesia/Blood Transfusion Reactions: No Reported Reaction Past Psychological History: Anxiety, Depression, Panic Disorder Smoking Status: Former smoker Past Alcohol Use History: Occasional Past Drug Use History: Marijuana - Past Family History Mother Family Medical History: Asthma, COPD, Eye Disorder, Myocardial Infarction (IA) General Exam Limitations: no limitations General appearance: alert, in no apparent distress Head exam: Present: atraumatic, normocephalic, normal inspection Eye exam: Present: normal appearance, PERRL, EOMI. Absent: scleral icterus, conjunctival injection, periorbital swelling ENT exam: Present: normal exam, mucous membranes moist Neck exam: Present: normal inspection. Absent: tenderness, meningismus, lymphadenopathy Respiratory exam: Present: normal lung sounds bilaterally. Absent: respiratory distress, wheezes, rales, rhonchi, stridor Cardiovascular Exam: Present: regular rate, normal rhythm, normal heart sounds. Absent: systolic murmur, diastolic murmur, rubs, gallop, clicks GI/Abdominal exam: Present: soft, normal bowel sounds. Absent: distended, tenderness, guarding, rebound, rigid Extremities exam: Present: normal inspection, full ROM, normal capillary refill. Absent: tenderness, pedal edema, joint swelling, calf tenderness Back exam: Present: normal inspection Neurological exam: Present: alert, oriented X3, CN II-XII intact Psychiatric exam: Present: normal affect, normal mood Skin exam: Present: warm, dry, intact, normal color. Absent: rash Course Vital Signs 02/26/21 02/26/21 05:25 06:55 Temperature 98 F 98.3 F Pulse Rate 78 74 Respiratory 20 18 Rate Blood Pressure 113/74 116/40 O2 Sat by Pulse 97 98 Oximetry - Reevaluation(s) Reevaluation #1: Medical record is reviewed Patient symptoms are improved here in the ER Patient is in no acute distress Patient informed results questions answered Medical Decision Making - Medical Decision Making 20 female to the ER for lower quadrant abdominal pain after vaginal delivery. Patient has CT of his abdomen and pelvis negative here in the ER, no acute distress and she can be discharged - Lab Data Result diagrams: 02/26/21 05:45 02/26/21 05:45 Lab Results 02/26/21 02/26/21 02/26/21 Range/Units 05:45 05:45 05:45 WBC 7.0 (3.8-10.6) k/uL RBC 4.60 (3.80-5.40) m/uL Hgb 13.5 D (11.4-16.0) gm/dL Hct 40.5 (34.0-46.0) % MCV 88.0 (80.0-100.0) fL MCH 29.4 (25.0-35.0) pg MCHC 33.3 (31.0-37.0) g/dL RDW 15.2 (11.5-15.5) % Plt Count 303 (150-450) k/uL MPV 6.9 Neutrophils % 66 % Lymphocytes % 25 % Monocytes % 5 % Eosinophils % 2 % Basophils % 1 % Neutrophils # 4.6 (1.3-7.7) k/uL Lymphocytes # 1.7 (1.0-4.8) k/uL Monocytes # 0.3 (0-1.0) k/uL Eosinophils # 0.1 (0-0.7) k/uL Basophils # 0.0 (0-0.2) k/uL PT (9.0-12.0) sec INR (<1.2) APTT (22.0-30.0) sec Sodium 140 (137-145) mmol/L Potassium 4.2 (3.5-5.1) mmol/L Chloride 110 H (98-107) mmol/L Carbon Dioxide 19 L (22-30) mmol/L Anion Gap 11 mmol/L BUN 21 H (7-17) mg/dL Creatinine 0.58 (0.52-1.04) mg/dL Est GFR (CKD-EPI)AfAm >90 (>60 ml/min/1.73 sqM) Est GFR (CKD-EPI)NonAf >90 (>60 ml/min/1.73 sqM) Glucose 94 (74-99) mg/dL Plasma Lactic Acid Maximo (0.7-2.0) mmol/L Calcium 10.1 (8.4-10.2) mg/dL Total Bilirubin 0.9 (0.2-1.3) mg/dL AST 23 (14-36) U/L ALT 15 (4-34) U/L Alkaline Phosphatase 112 (38-126) U/L CK-MB (CK-2) (0.0-2.4) ng/mL Total Protein 7.2 (6.3-8.2) g/dL Albumin 4.2 (3.5-5.0) g/dL Amylase 57 (30-110) U/L Lipase 117 (23-300) U/L Urine Color Colorless Urine Appearance Clear (Clear) Urine pH 5.5 (5.0-8.0) Ur Specific [place] 1.003 (1.001-1.035) Urine Protein Negative (Negative) Urine Glucose (UA) Negative (Negative) Urine Ketones Negative (Negative) Urine Blood Small H (Negative) Urine Nitrite Negative (Negative) Urine Bilirubin Negative (Negative) Urine Urobilinogen <2.0 (<2.0) mg/dL Ur Leukocyte Esterase Large H (Negative) Urine RBC 1 (0-5) /hpf Urine WBC 6 H (0-5) /hpf Ur Squamous Epith Cells <1 (0-4) /hpf 02/26/21 02/26/21 02/26/21 Range/Units 05:45 05:45 05:45 WBC (3.8-10.6) k/uL RBC (3.80-5.40) m/uL Hgb (11.4-16.0) gm/dL Hct (34.0-46.0) % MCV (80.0-100.0) fL MCH (25.0-35.0) pg MCHC (31.0-37.0) g/dL RDW (11.5-15.5) % Plt Count (150-450) k/uL MPV Neutrophils % % Lymphocytes % % Monocytes % % Eosinophils % % Basophils % % Neutrophils # (1.3-7.7) k/uL Lymphocytes # (1.0-4.8) k/uL Monocytes # (0-1.0) k/uL Eosinophils # (0-0.7) k/uL Basophils # (0-0.2) k/uL PT 9.8 (9.0-12.0) sec INR 0.9 (<1.2) APTT 23.4 (22.0-30.0) sec Sodium (137-145) mmol/L Potassium (3.5-5.1) mmol/L Chloride (98-107) mmol/L Carbon Dioxide (22-30) mmol/L Anion Gap mmol/L BUN (7-17) mg/dL Creatinine (0.52-1.04) mg/dL Est GFR (CKD-EPI)AfAm (>60 ml/min/1.73 sqM) Est GFR (CKD-EPI)NonAf (>60 ml/min/1.73 sqM) Glucose (74-99) mg/dL Plasma Lactic Acid Maximo 0.8 (0.7-2.0) mmol/L Calcium (8.4-10.2) mg/dL Total Bilirubin (0.2-1.3) mg/dL AST (14-36) U/L ALT (4-34) U/L Alkaline Phosphatase (38-126) U/L CK-MB (CK-2) 0.4 (0.0-2.4) ng/mL Total Protein (6.3-8.2) g/dL Albumin (3.5-5.0) g/dL Amylase (30-110) U/L Lipase (23-300) U/L Urine Color Urine Appearance (Clear) Urine pH (5.0-8.0) Ur Specific [place] (1.001-1.035) Urine Protein (Negative) Urine Glucose (UA) (Negative) Urine Ketones (Negative) Urine Blood (Negative) Urine Nitrite (Negative) Urine Bilirubin (Negative) Urine Urobilinogen (<2.0) mg/dL Ur Leukocyte Esterase (Negative) Urine RBC (0-5) /hpf Urine WBC (0-5) /hpf Ur Squamous Epith Cells (0-4) /hpf - Radiology Data Radiology results: report reviewed (CT abdomen and pelvis negative for acute disease), image reviewed Disposition Clinical Impression: Abdominal pain Disposition: HOME SELF-CARE Condition: Good Instructions (If sedation given, give patient instructions): Abdominal Pain (ED) Is patient prescribed a controlled substance at d/c from ED?: No Referrals: Martín Chen [Primary Care Provider] - 1-2 days
[2021-02-26 06:11] LABS: Appearance,Urine Clear (Clear); Bilirubin,Urine Negative (Negative); Blood,Urine Small (Negative); Color,Urine Colorless; Glucose,Urine (UA) Negative (Negative); Ketones,Urine Negative (Negative); Leukocyte Esterase,Urine Large (Negative); Nitrite,Urine Negative (Negative); PH, Urine 5.5 (5.0-8.0); Protein,Urine Negative (Negative); RBC,Urine 1 /hpf (0-5); Specific Gravity,Urine 1.003 (1.001-1.035); Squamous Epithelial Cell,Urine <1 /hpf (0-4); Urobilinogen,Urine <2.0 mg/dL (<2.0); WBC,Urine 6 /hpf (0-5)
[2021-02-26 06:20] LABS: Basophils % (A) 1 %; Eosinophils # (A) 0.1 k/uL (0-0.7); Eosinophils % (A) 2 %; HCT 40.5 % (34.0-46.0); Lymphocytes # (A) 1.7 k/uL (1.0-4.8); Lymphocytes % (A) 25 %; MCH 29.4 pg (25.0-35.0); MCHC 33.3 g/dL (31.0-37.0); Mean Platelet Volume 6.9; Monocytes # (A) 0.3 k/uL (0-1.0); Monocytes % (A) 5 %; Neutrophils # (A) 4.6 k/uL (1.3-7.7); Neutrophils % (A) 66 %; Platelet Count 303 k/uL (150-450); RDW 15.2 % (11.5-15.5)
[2021-02-26 06:21] LABS: INR 0.9 (<1.2); Partial Thromboplastin Time 23.4 sec (22.0-30.0); Prothrombin Time 9.8 sec (9.0-12.0)
[2021-02-26 06:22] LABS: ALT 15 U/L (4-34); AST 23 U/L (14-36); African American GFR (CKD) >90 (>60 ml/min/1.73 sqM); Albumin 4.2 g/dL (3.5-5.0); Alkaline Phosphatase 112 U/L (38-126); Amylase 57 U/L (30-110); Anion Gap 11 mmol/L; Blood Urea Nitrogen 21 mg/dL (7-17); Calcium 10.1 mg/dL (8.4-10.2); Carbon Dioxide 19 mmol/L (22-30); Chloride 110 mmol/L (98-107); Glucose 94 mg/dL (74-99); Lipase 117 U/L (23-300); Non-African American GFR(CKD) >90 (>60 ml/min/1.73 sqM); Potassium 4.2 mmol/L (3.5-5.1); Sodium 140 mmol/L (137-145); Total Bilirubin 0.9 mg/dL (0.2-1.3); Total Protein 7.2 g/dL (6.3-8.2)
[2021-02-26 06:23] LABS: HGB 13.5 gm/dL (11.4-16.0)
[2021-02-26 06:59] VITALS: BP 116/40; PULSE 74; RESP 18; TEMP 98.3
--- NOTE | 2021-02-26 07:19 | CT ---
EXAMINATION TYPE: CT abdomen pelvis w con DATE OF EXAM: 02/26/2021 COMPARISON: None HISTORY: Abdominal pain CT DLP: 1655.2 mGycm CONTRAST: CT scan of the abdomen and pelvis is performed without Oral Contrast and with IV Contrast, patient in jected with 100 ml mL of Isovue 300. FINDINGS: LUNG BASES-: No visible nodule. No infiltrate. LIVER/GB: No calcified gallstones. No space occupying hepatic lesion. Biliary tree is of normal ca liber. PANCREAS: No inflammation. No distinct mass. SPLEEN: Splenomegaly with craniocaudal measurement of 14 cm. No lesion seen. ADRENALS: No nodule. No thickening. KIDNEYS/BLADDER: No hydronephrosis. No nephrolithiasis. No distinct renal mass. Urinary bladder g rossly unremarkable. BOWEL: Partially imaged appendix appears to be within normal limits. Correlate clinically. Normal bow el caliber. No inflammation. GENITAL ORGANS: Enlarged uterus compatible with the patient's post state. Fluid is seen within the endometrium. No evidence for pelvic free fluid at this time. No adnexal mass. LYMPH NODES: No greater than 1cm abdominal or pelvic lymph nodes are appreciated. AORTA: No significant abnormality. OSSEOUS STRUCTURES: No significant abnormality is seen. OTHER: No significant additional abnormality is seen. IMPRESSION: 1. Partially imaged appendix appears to be within normal limits. Correlate clinically. 2.Enlarged uterus compatible with the patient's post state. Fluid is seen within the endometri um. 3. Splenomegaly with craniocaudal measurement of 14 cm.
== END 2021-02-26 08:16 | disposition home or self-care (01) ==
LOC: EC 05:25
DX: R10.31 Right lower quadrant pain (principal); J45.909 Unspecified asthma, uncomplicated; F12.90 Cannabis use, unspecified, uncomplicated; Z79.1 Long term (current) use of non-steroidal anti-inflammatories (NSAID); Z87.891 Personal history of nicotine dependence; Z82.49 Family history of ischemic heart disease and other diseases of the circulatory system
CPT/HCPCS: 36415; 80053; 82150; 82553; 83605; 83690; 85025; 85610; 85730; 81001; 74177; 96374; 96361; 99284; J1885; Q9967

== ENCOUNTER 2021-06-18 11:06 | Day surgery (SDC) | payer OTHER ==
[2021-06-16 16:08] VITALS: BMI 39.9
[~2021-06-18 11:06] MED LIST: DEXAMETHASONE SOD PHOSPHATE 4 MG/ML 1 ML VIAL IV ONE; LACTATED RINGERS 1,000 ML IV SCH; MIDAZOLAM 2 MG/2 ML VIAL IV PRN; ONDANSETRON 4 MG/2 ML VIAL IVP ONE; Pre Op ABX Message 1 EACH MISC MISCELLANE ONE; SCOPOLAMINE 1.5MG/72HR PATCH TRANSDERM ONE
[2021-06-18] MEDS ORDERED: LIDOCAINE 1% (10MG/ML) FOR IV START INTRADERMA ONE (11:45)
[2021-06-18] MEDS ORDERED: .fentaNYL (PF) 50 MCG/ML AMP ONE (12:55)
[2021-06-18] MEDS ORDERED: MIDAZOLAM 2 MG/2 ML VIAL ONE (12:55)
[2021-06-18] MEDS ORDERED: HYDROmorphone (PF) 1 MG/ML ONE (12:55)
[2021-06-18] MEDS ORDERED: SUCCINYLCHOLINE CHLORIDE 100 MG/5 ML SYR IV ONE (12:55)
[2021-06-18] MEDS ORDERED: PROPOFOL 10 MG/ML 20 ML VIAL IV ONE (12:55)
[2021-06-18] MEDS ORDERED: LIDOCAINE 1% INJ 10MG/ML (20 ML MDV) ONE (12:55)
[2021-06-18] MEDS ORDERED: BUPIVACAINE (PF) 0.25% 30 ML VIAL SQ ONE ×2 (13:10→13:23)
[2021-06-18] MEDS ORDERED: LACTATED RINGERS 1,000 ML IV ONE (13:14)
[2021-06-18] MEDS: HYDROmorphone 0.5 MG/0.5 ML SYRINGE IVP PRN ×2 (13:50→13:58)
[2021-06-18 14:08] VITALS: TEMP 96.9
--- NOTE | 2021-06-18 14:29 | P.OP ---
Date of Procedure: 06/18/21 Procedure(s) Performed: PREOPERATIVE DIAGNOSIS: 1. Left knee symptomatic medial parapatellar plica; 2. Anterolateral intraarticular ganglion cyst POSTOPERATIVE DIAGNOSIS: 1. Left knee symptomatic medial parapatellar plica; 2. Anterolateral intraarticular ganglion cyst PROCEDURES PERFORMED: 1. Left knee arthroscopic excision medial parapatellar plica 2. Arthroscopic excision of anterolateral intrarticular ganglion cyst ANESTHESIA: mat tester: None COMPLICATIONS: none ESTIMATED BLOOD LOSS: Less than 10 ml DISPOSITION: To post-anesthesia care unit INDICATIONS: Ms. Valverde is a 20-year-old female with a history of left knee pain on the medial side. She has a history of morbid obesity with a BMI of 40. MRI findings are suspicious for possible parapatellar plica medially and anterolateral intraarticular ganglion cyst that has minimal clinical correlation with symptoms. The patient has no evidence of arthritis involving the patellofemoral and medial compartments. Patient presents to the operating room today for arthroscopy with surgical removal of the parapatellar plica. I have explained the procedure in detail as well as potential risks and complications as being inclusive of but not limited to: Bleeding, infection, scarring, discomfort, blood vessel and/or nerve damage, failure to relieve symptoms, persistence or recurrence and/or worsening of symptoms, blood clot, pulmonary embolism, limp, , and other risks, including the need for knee replacement. The consent form has been signed. PROCEDURE: After appropriate consent was obtained, the patient was taken to the operating room and placed supine on the operating table. General anesthesia was initiated. The knee was examined under anesthesia. Medial collateral, lateral collateral, anterior and posterior cruciate ligaments were all intact. Range of motion was 0 to 1:30 with no crepitus in the patellofemoral compartment. No effusion and no soft tissue swelling was noted. Prepping and draping of the operative knee was performed in the usual sterile fashion using ChloraPrep. Care was taken that all pressure points were adequately padded. Leg duarte and pneumotourniquet were used. ``Time-out" was called according to [employer] standards, confirming patient identity, surgical procedure, side, and no antibiotic administration. The surgical portals were placed directly next to the patellar tendon medially and laterally. Camera and instruments were carefully inserted into the knee and arthroscopy was performed. Patellofemoral joint showed minimal early degenerative changes of the cartilage surfaces without focal defect or significant thinning. Medial parapatelar plica was noted, small in size, and confluent with a band of tissue in the anteromedial region which presumably is contributing to this patient's symptoms. Resector was used to trim the plica ba ck to the medial capsule. Anteromedial fatty tissue and fascia was also resected near the level of the anteromedial portal. Lateral compartment showed normal hyaline cartilage without defect. Lateral meniscus was visualized and probed, the anterior horn showing some mild degenerative fraying. The anterolateral joint capsule was thoroughly investigated and no typical ganglion cyst was noted in this region. Considering the MRI findings, the area where the presumed deflated intraarticular cyst was located was debrided with the shaver. Popliteal hiatus was normal. No loose bodies. Medial compartment was then examined. There was no evidence of significant arthritis involving the medial femoral condyle or the medial tibial plateau. Medial meniscus was probed and visualized and found to be intact throughout. Cruciate ligaments were noted to be intact. No loose bodies or ganglion cysts were noted around the cruciate ligaments. Medial and lateral gutters showed no evidence of loose bodies, but some mild synovitis was present and was resected with a shaver. Portals were then closed with 4-0 Monocryl suture. A quantity of ropivacaine solution was injected into the knee and around the portal sites. Steri-Strips were applied and tourniquet was deflated. Sterile dressing and light compressive dressing was applied using Webril and JOSEPHINE wrap. Patient tolerated the procedure well and taken to recovery room in stable condition. Sponge and needle counts were correct.
[2021-06-18 15:20] VITALS: BP 110/63; PULSE 72; RESP 18
[2021-06-18] MEDS ORDERED: ONDANSETRON 4 MG/2 ML VIAL IVP ONE (15:23)
[2021-06-18] MEDS ORDERED: ONDANSETRON 4 MG/2 ML VIAL ONE (15:25)
== END 2021-06-18 15:57 | disposition home or self-care (01) ==
LOC: OR 11:06
PROVIDERS: ATTEND Orthopaedic Surgery
DX: M67.52 Plica syndrome, left knee (principal); M67.462 Ganglion, left knee
CPT/HCPCS: 29875; 27328; 81025; J2250; J1100; J2405; J2001; J3010; J1170 ×2; J0330; J2704

== ENCOUNTER → 2024-06-22 | Outpatient (CLI) | payer OTHER ==
--- NOTE | 2024-06-22 13:42 | MR ---
EXAMINATION TYPE: MR brain wo/w con DATE OF EXAM: 06/22/2024 1:24 PM COMPARISON: None. 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 TECHNIQUE: Multiplanar and multispin-echo imaging of the brain was performed both before and after th e administration of contrast. CONTRAST: Patient received 10 mL intravenous Gadavist gadolinium contrast. FINDINGS: The ventricles, basal cisterns and sulci overlying the cerebral convexities are within normal limits. There is no evidence for midline shift or mass effect. Acute intracranial hemorrhage or extra-axial collection is not evident. There are no abnormal areas of increased or decreased signal intensity within the brain parenchyma. Following contrast administration, there is no evidence for pathologic enhancement or enhancing mass. The paranasal sinuses and mastoid air cells are well-aerated. IMPRESSION: Unremarkable pre and postcontrast enhanced MRI of the brain. [facility], , 06/22/2024 1:40 PM
[2024-06-22 22:53] LABS: Basophils # (A) 0.03 X 10*3/uL (0.00-0.10); Basophils % (A) 0.6 %; Eosinophils # (A) 0.14 X 10*3/uL (0.04-0.35); Eosinophils % (A) 2.8 %; HCT 44.4 % (37.2-46.3); HGB 14.6 g/dL (12.0-15.0); Lymphocytes # (A) 1.72 X 10*3/uL (0.90-5.00); Lymphocytes % (A) 34.6 %; MCH 28.1 pg (27.0-32.0); MCHC 32.9 g/dL (32.0-37.0); MCV 85.4 FL (80.0-97.0); Mean Platelet Volume 9.5 FL (9.5-12.2); Monocytes # (A) 0.44 X 10*3/uL (0.20-1.00); Monocytes % (A) 8.9 %; NRBC Per 100 WBC 0 X 10*3/uL (0.00-0.01); Neutrophils # (A) 2.63 X 10*3/uL (1.80-7.70); Neutrophils % (A) 52.9 %; Platelet Count 295 X 10*3/uL (140-440); RDW 14.2 % (11.5-14.5); WBC 4.97 X 10*3/uL (4.50-10.00)
[2024-06-22 23:21] LABS: Rheumatoid Factor, Qnt <15 IU/mL (0-15)
[2024-06-22 23:41] LABS: Erythrocyte Sedimentation Rate 7 mm/Hr (0-20)
[2024-06-24 09:30] LABS: Angiotensin-1 Converting Enz. 40 U/L (8-52)
== END | disposition home or self-care (01) ==
LOC: RADMRIMAIN 10:53
PROVIDERS: ATTEND Ophthalmology
DX: H47.293 Other optic atrophy, bilateral (principal)
CPT/HCPCS: 85549; 85652; 82607; 82746; 82164; 85025; 86140; 86431; 86592; 86038; 70553; A9585